=== PATIENT | female | born 1985 | race Caucasian/White ===

== ENCOUNTER 2017-04-21 13:29 | Emergency (ER) | payer MEDICAID ==
[~2017-04-21] VITALS: Ht 167.6 cm; Wt 75.0 kg
[2017-04-21] MEDS ORDERED: IBUPROFEN 600MG TABLET PO ONE (14:00)
[2017-04-21 14:08] VITALS: BP 133/80
== END 2017-04-21 15:20 | disposition home or self-care (01) ==
LOC: ER 14:22
DX: S60.221A Contusion of right hand, initial encounter (principal); S90.31XA Contusion of right foot, initial encounter; W22.8XXA Striking against or struck by other objects, initial encounter; Y93.89 Activity, other specified; Y92.89 Other specified places as the place of occurrence of the external cause; Y99.8 Other external cause status
CPT/HCPCS: 29125; 73130; 81025; 99284